=== PATIENT | female | born 1985 | race Caucasian/White ===

== ENCOUNTER 2018-08-06 18:07 | Inpatient (IN) | payer OTHER ==
[~2018-08-06] VITALS: Ht 162.6 cm; Wt 95.7 kg
[2018-08-06] MEDS ORDERED: FOLIC ACID1 MG PO (23:56)
[2018-08-06] MEDS ORDERED: IRON325 PO (23:56)
[2018-08-06] MEDS ORDERED: HYDREA 500 MG500 M1 PO (23:57)
[2018-08-06] MEDS ORDERED: OXYCODONE HCL15 MG PO (23:58)
--- NOTE | 2018-08-07 03:13 | NUR ---
ADMITTED DIRECTLY FROM [facility]. ADMITTED WITH SICKLE CELL CRISIS AND HTN. C/O PERSISTENT GENERALIZED PAIN. ALY SETH SAW PT AT BEDSIDE. PT REFUSED TO BE ON TELE AND ALY SETH EXPLAINED THE R/B OF THE MONITOR. ACCEPTED THE MONITORING IN THE BEGINNING, BUT TOOK THE MONITOR OUT AND DEMANDED TO SEE THE TECHNICAL ADMINISTRATIVE ASSISTANT. PER PT THE ELECTRODES ARE TOO IRRITATING TO SKIN. ADMINISTERED BENADRL AND STILL DID NOT WANT THE RESERVATIONS SALES SUPERVISOR. CALLED [facility] AND REPORTED THE REFUSAL. PER HOME HEALTH SCHEDULER, REEDUCATE AND CHART REFUSAL. ALSO TECHNICAL ADMINISTRATIVE ASSISTANT TALKED TO THE PATIENT AT BEDSIDE. THERE WAS AN INCIDENT WHERE PT LEFT THE UNIT WITHOUT NOTIFYING THE STAFF. IMMEIDATELY CALLED [employer]'S OFFIE AND FOUND OUT PT DOWN AT [employer] BORROWING PHONE STEAM HAND. EUDCATED PT THAT PT CANNOT LEAVE THE UNIT WITH OPEN IV ACCESS THAT PER PROTOCOL HER BED WILL BE GIVEN UP. PT VERBALIZES UNDERSTANDING. NO OPEN WOUNDS NOTED ON HER SKIN. HEALED SCARS AND MULTIPLE SCARS NOTED. LUNG SOUNDS DID HAVE MILD WHEEZING. PER PT, PT DOES BETTER WITH SUPP OXYGEN. SET UP 2L NC AND EDUCATED TO USE THE O2 NEEDED. CONSENTS ARE SIGNED AND MED REC COMPLETED AND HOMW MEDS RESTARTED. NO S/S ACUTE DISTRESS NOTED OR REPORTED AT THIS TIME. WILL CONT TO MONITOR FOR ANY CHANGES IN CONDITION.
[2018-08-07 04:00] VITALS: BP 166/97
[2018-08-07 07:11] VITALS: BP 167/101
[2018-08-07] MEDS ORDERED: HYDREA 500 MG500 M1 PO (12:45)
[2018-08-07] MEDS ORDERED: OXYCODONE HCL15 MG PO (12:46)
[2018-08-07] MEDS ORDERED: FOLIC ACID1 MG PO (12:46)
[2018-08-07] MEDS ORDERED: IRON325 PO (12:46)
[2018-08-07 13:08] VITALS: BP 167/101
[2018-08-07 13:19] VITALS: BP 167/101
--- NOTE | 2018-08-07 14:55 | NUR ---
PATIENT STATES THAT SHE HAS TO BE DISCHARGED TO TO HAVING NO COMMODITY MANAGEMENT SPECIALIST FOR HER CHILDREN. DR NAVA IN TO EXAMINE PATIENT, LAB WORK ORDERED BUT NOT OBTAINED DUE TO MULTIPLE LAB TECHS NOT BEING ABLE TO GET A SAMPLE OF BLOOD. PATIENT STATES THAT SHE CANT WAIT ANY LONGER, AND NEEDS TO BE DISCHARGE. CANDICE NAVA EDUCATED PATIENT ON SEEING HER PRIMARY CARE PROVIDER RUSTY. DISCUSSED ALL DISCHARGE INSTRUCTIONS, VERBALIZED UNDERSTANDING. LEFT UNIT WITH NURSING PERSONNEL AND TOOK WITH HER ALL PERSONAL BELONGINGS, AND PRESCRIPTIONS.
== END 2018-08-07 13:35 | disposition home or self-care (01) | DRG 812 ==
LOC: 4W 18:07
PROVIDERS: ADMIT Hospitalist
DX: D57.00 Hb-SS disease with crisis, unspecified (principal); F11.23 Opioid dependence with withdrawal; Z88.0 Allergy status to penicillin; F41.9 Anxiety disorder, unspecified; F17.210 Nicotine dependence, cigarettes, uncomplicated; I10 Essential (primary) hypertension; J45.909 Unspecified asthma, uncomplicated; Z88.6 Allergy status to analgesic agent; Z88.8 Allergy status to other drugs, medicaments and biological substances; Z90.49 Acquired absence of other specified parts of digestive tract; Z98.891 History of uterine scar from previous surgery; Z82.49 Family history of ischemic heart disease and other diseases of the circulatory system
CPT/HCPCS: 10047